=== PATIENT | female | born 1990 | race Caucasian/White ===

== ENCOUNTER 2025-04-15 23:49 | Emergency (ER) | payer BC, SELFPAY ==
--- NOTE | ~2025-04-15 | XR_ITS ---
EXAMINATION: XR knee RT 3V, XR knee LT 3V DATE: 04/16/2025 00:55 INDICATION: Bilateral knee pain post fall TECHNIQUE: 1. Anteroposterior, oblique and crosstable lateral views of the right knee were obtained. 2. Anteroposterior, oblique and crosstable lateral views of the left knee were obtained. COMPARISON: None. FINDINGS: Right knee: Alignment is normal. No fracture. Joint spaces are normal and nonweightbearing imaging. No joint effusion/layering lipohemarthrosis. Soft tissues are unremarkable. Left knee: Alignment is normal. No fracture. Joint spaces are normal on nonweightbearing imaging. No joint effusion/layering lipohemarthrosis. Soft tissues are unremarkable. IMPRESSION: 1. Normal bilateral knee radiographs. Reviewed, dictated and finalized at location A. IMPRESSION: 1. Normal bilateral knee radiographs.
--- NOTE | ~2025-04-15 | CT_ITS ---
EXAMINATION: CT brain wo con DATE: 04/16/2025 00:51 INDICATION: Head injury. TECHNIQUE: Computed tomography (CT) of the head was performed without intravenous contrast. Sagittal and coronal reconstructions were performed. The mA was adjusted according to patient size. Iterative reconstruction technique was employed. The dose-length product was 1135.00 mGy-cm. COMPARISON: None FINDINGS: No fracture. No acute intracranial hemorrhage, acute infarction or abnormal extra axial fluid collection. Small old lacunar infarct in the white matter of the right frontal lobe centrum semiovale. Ventricles are normal and symmetric. No mass/mass effect. The orbits, paranasal sinuses and mastoid air cells are normal. IMPRESSION: 1. No fracture or acute intracranial process. 2. Small old lacunar infarct in the right frontal lobe centrum semiovale. Reviewed, dictated and finalized at location A.
--- NOTE | ~2025-04-15 | CT_ITS ---
EXAMINATION: CT cervical spine wo con DATE: 04/16/2025 00:51 INDICATION: Fall with head injury TECHNIQUE: Computed tomography (CT) of the cervical spine was performed without intravenous contrast. Automated exposure control and iterative reconstruction technique were employed. The dose-length product was 833.09 mGy-cm. COMPARISON: None FINDINGS: There is reversal of the normal cervical lordosis which could be positional or due to muscle spasm. Vertebral body heights are normal. No fracture. Mild disc height loss at C4-C5 and C5-C6. Mild disc bulge at C5-6 contributing to mild central canal stenosis at this level. Multilevel minimal to mild cervical facet and uncovertebral osteoarthritis. No neural foraminal stenosis. Cervical soft tissues are unremarkable. Mild respiratory motion and atelectasis in the visualized upper lungs. IMPRESSION: 1. Mild reversal of the normal cervical lordosis which could be positional or due to muscle spasm. No acute osseous abnormality. 2. Minimal to mild cervical spondylosis. Reviewed, dictated and finalized at location A. IMPRESSION: 1. Mild reversal of the normal cervical lordosis which could be positional or d ue to muscle spasm. No acute osseous abnormality. 2. Minimal to mild cervical spondylosis.
--- OUTSIDE RECORDS SUMMARY | 2025-04-15 23:51 | XMS_ITS | Clinical Summary ---
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
[2025-04-15 23:54] VITALS: BP 137/93; PULSE 121; RESP 21; TEMP 36.4; O2SAT 98
--- NOTE | 2025-04-15 23:55 | ECG_ITS ---
Test Date: 2025-04-15 23:55:02 Measurements Intervals Brice Rate: 127 P: 185 ME: 208 QRS: 68 QRSD: 94 T: 0 QT: 325 QTc: 474 Interpretive Statements SINUS TACHYCARDIA NONSPECIFIC ST & T-WAVE ABNORMALITY ABNORMAL RHYTHM ECG No previous ECG available for comparison Electronically Signed On 04-16-2025 11:43:07 CDT by Aldo Kirk M.D.
--- NOTE | 2025-04-16 01:09 | PC.NURSE ---
pt took c collar off.
--- OUTSIDE RECORDS SUMMARY | 2025-04-16 01:14 | XMS_ITS | Clinical Summary ---
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 Gender Identity Not on file Sexual Orientation Not on file Plan of Treatment Health Maintenance Due Date Last Done Comments Hepatitis C Virus (HCV) Screening 1992 TdaP Immunization 1992 Hepatitis B Immunization (1 of 3 - 19+ 3-dose series) 2011 Pap Smear 2013 Human Papillomavirus (HPV) Immunization (1 - 3-dose SCDM series) 2019 Cervical Cancer Screening (CCS) 2022 HPV/Cotest 2022 SARS-COV-2 Immunization ( season) 2024 Influenza Immunization (#1) 2025 Respiratory Syncytial Virus (RSV) Immunization (Adult) (1 - 1-dose 75+ series) 2067 Meningococcal Immunization (ACWY) Aged Out No longer eligible based on patient's age to complete this topic Pneumococcal Immunization Combined Aged Out No longer eligible based on patient's age to complete this topic Rotavirus Immunization Aged Out No lo nger eligible based on patient's age to complete this topic Insurance [employer] on file
--- OUTSIDE RECORDS SUMMARY | 2025-04-16 01:14 | XMS_ITS | Clinical Summary ---
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
--- OUTSIDE RECORDS SUMMARY | 2025-04-16 01:14 | XMS_ITS | Clinical Summary ---
Author Organization [facility] Address [address] [place] [address] Care Team Providers Care Financial Services Consultant Name Role Phone Unavailable Primary Care Provider Unavailabl e Source Comments [facility],non-owned Affiliates and Associated Physician Practices is amultiple site organization consisting of ambulatory clinics and hospital sitesin [place], [place], [place] and [place]. This disclosure is being madepursuant to the Care Everywhere program and may not contain all information available regarding this patient. Last updated 18.[facility] Allergies No known active allergies Medications * Be aware that medications may not be up to date on this document. Alwaysverify current medications with the patient. No known medications Active Problems No known active problems Family History Medical History Relation Name Comments Cancer - Colon Father CAD (Coronary Artery Disease) Mother Relation Name Status Comments Father Mother Social History Tobacco Use Types Packs/Day Years Used Date Smoking Tobacco: Never Smokeless Tobacco: Never Tobacco Cessation:Counseling Given: Yes Comments Unknown Sex and Gender Information Value Date Recorded Sex Assigned at Not on file Legal Sex Female 11:23 AM CDT Gender Identity Not on file Sexual Orientation Not on file Last Filed Vital Signs Vital Sign Reading Time Taken Comments Blood Pressure 120/82 09/29/2019 9:59 AM LINTER TENDER Pulse 85 09/29/2019 9:59 AM LINTER TENDER Temperature 37.1 C (98.7 F) 09/29/2019 9:59 AM LINTER TENDER Respiratory Rate 16 09/29/2019 9:59 AM LINTER TENDER Oxygen Saturation 98% 09/29/2019 9:59 AM LINTER TENDER Inhaled Oxygen Concentration - - Weight 90.3 kg (199 lb) 09/29/2019 9:59 AM LINTER TENDER Height 156.2 cm (5' 1.5) 09/29/2019 9:59 AM LINTER TENDER Body Mass Index 36.99 09/29/2019 9:59 AM LINTER TENDER Plan of Treatment Health Maintenance Due Date Last Done Comments HIV SCREENING 2007 HEPATITIS C SCREENING 04/19/2010 DTAP/TDAP/TD VACCINES (1 - Tdap) 2011 HEPATITIS B VACCINE (1 of 3 - 19+ 3-dose series) 2011 HPV VACCINE (1 - 3-dose SCDM series) 2019 COVID-19 VACCINE (1 - 2023-2 5 season) 2024 DEPRESSION SCREENING 08/16/2024 INFLUENZA VACCINE (#1) 2025 ZOSTER VACCINE (1 of 2) 2042 HIB VACCINE Aged Out No longer eligi ble based on patient's age to complete this topic MENINGOCOCCAL (Group B) VACC INE SHARED DECISION-MAKING Aged Out No longer eligibl e based on patient's age to complete this topic MENINGOCOCCAL GROUPS A/C/Y/W VACCINE Aged Out No longer eligible b ased on patient's age to complete this topic PNEUMOCOCCAL VACCINE Aged Out No long er eligible based on patient's age to complete this topic Insurance [facility] Address: [facility] [id number] [place] [id number]
--- OUTSIDE RECORDS SUMMARY | 2025-04-16 01:14 | XMS_ITS | Clinical Summary ---
Author Organization [facility] Address [address] [place] [address] Care Team Providers Care Piano Tuner Name Role Phone Komal Castano MD Primary Care Provider [phone] Allergies No known active allergies Medications collagen, hydrolysate, bovine, (collagen, hydr, bovine,, bulk,) 100 % powder Active Lactobac no.41/Bifidobact no.7 (PROBIOTIC-10 ORAL) Take by mouth Active Active Problems Problem Noted Date Diagnosed Date BMI 32.0-32.9,adult 06/12/2021 Encounter for initial prescription of contracept simone pills 04/09/2021 Assessment & Plan (04/09/2021 8:49 AM CDT): Patient uses seatbelt. Patient was advised to continue to watch her diet and exercise on regular basis. Will obtain blood work. Will arrange for Pap smear. Will make a referral for colonoscopy because of family history of colon cancer. Skin lesion 04/09/2021 Assessment & Plan (04/09/2021 8:50 AM CDT): Will make a referral to see a plastic surgeon for excision of the skin lesion on the right arm Immunizations Immunization Administration Dates Next Due Tdap 02/13/2015 Surgical History Surgery Date Site/Laterality Comments SKIN LESION EXCISION 08/05/2021 Right Excision skin lesion right forearm Family History Medical History Relation Name Comments Hypertension Father Hypertension Mother Colon cancer Paternal Grandmother Relation Name Status Comments Father Alive Mother Alive Paternal Grandfather Paternal Grandmother Social History Tobacco Use Types Packs/Day Years Used Date Smoking Tobacco: Never Smokeless Tobacco: Never AUDIT-C Answer Date Recorded Q1: How often do you have a drink containing alc ohol? 2-3 times a week 06/12/2021 Q2: How many drinks containi ng alcohol do you have on a typical day when you are drinking? 1 or 2 06/12/2021 Q3: How often do you have si x or more drinks on one occasion? Never 06/12/2021 PHQ-2 Answer Date Recorded PHQ-2 Total Score (If total score is 3 or more points, staff should administer the PHQ-9) 0 06/12/2021 Personal Safety Answer Date Recorded Getting School Help Needed Not on file 10/16 Comments Unknown Sex and Gender Information Value Date Recorded Sex Assigned at Not on file Legal Sex Female 1:38 PM CDT Gender Identity Female 06/16/2021 2:14 PM CDT Sexual Orientation Straight 06/16/2021 2: 14 PM CDT Obstetrics History Last Filed Vital Signs Vital Sign Reading Time Taken Comments Blood Pressure 126/82 06/12/2021 8:40 AM CDT Pulse 88 06/12/2021 8:40 AM CDT Temperature 36.1 C (96.9 F) 07/16/2021 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 Respiratory Rate 16 06/12/2021 8:40 AM CDT Oxygen Saturation 97% 06/12/2021 8:40 AM CDT Inhaled Oxygen Concentration - - Weight 79.8 kg (176 lb) 06/12/2021 8:40 AM CDT Height 156 cm (5' 1.42) 06/12/2021 8:40 AM CDT Body Mass Index 32.8 06/12/2021 8:40 AM CDT Plan of Treatment Not on file Insurance [facility] CHOICE [employer]US [facility] H[facility]/PPO Address: [place] [address] [facility] Address: [place] [address] [facility] [place]: [place] [address] Care Teams Piano Tuner Relationship Specialty Start Date End Date Komal Castano MD [facility] [address] [address] PCP - General Internal Medicine 03/07/21
--- OUTSIDE RECORDS SUMMARY | 2025-04-16 01:14 | XMS_ITS | Clinical Summary ---
Author Organization [facility] Address [address] [place] [address] Care Team Providers Care Carpenter Ship Name Role Phone Kelvin Davis MD Primary Care Provider [phone] Allergies No known active allergies Medications doxycycline hyclate 100 MG capsule Take 1 capsule (100 mg total) by mouth 2 (two) times daily. 20 capsule 05/19/2021 Active Social History Tobacco Use Types Packs/Day Years Used Date Smoking Tobacco: Never Smokeless Tobacco: Never Alcohol Use Standard Drinks/Week Comments Yes 0 (1 standard drink = 0.6 oz pur e alcohol) social drinker Comments No Sex and Gender Information Value Date Recorded Sex Assigned at Not on file Legal Sex Female 5:18 PM CDT Gender Identity Not on file Sexual Orientation Not on file Last Filed Vital Signs Vital Sign Reading Time Taken Comments Blood Pressure 142/90 05/19/2021 8:44 PM CDT Pulse 82 05/19/2021 8:44 PM CDT Temperature 36.2 C (97.2 F) 05/19/2021 6:13 PM CDT Respiratory Rate 16 05/19/2021 8:44 PM CDT Oxygen Saturation 100% 05/19/2021 8:44 PM CDT Inhaled Oxygen Concentration - - Weight 79.5 kg (175 lb 4.3 oz) 05/19/2021 6:13 P M CDT Height 154.9 cm (5' 1) 05/19/2021 6:13 PM CDT Body Mass Index 33.12 05/19/2021 6:13 PM CDT Plan of Treatment Health Maintenance Due Date Last Done Comments Cervical Cancer Screening Pap Smear (Age 30 to 64) Every 3 Years 1992 Annual Physical 1995 HPV Vaccines (3 - 3-dose series) 03/04/2009 12/10/2008, 11/05/2008, 03/12/2008 Hepatitis C 2010 Cervical Cancer Screening Pap with HPV Testing (Age 30 to 64) Every 5 Years 2022 Cervical Cancer Screening with HPV 2022 COVID-19 Vaccine (2023- season) 2024 DTaP, Tdap and Td Vaccines (8 - Td or Tdap) 02/13/2025 02/13/2015, 02/19/2006, 06/24/2000, Additional history exists Hepatitis B Vaccines Completed 1992, 1992, 1992 Meningococcal B Vaccine Aged Out No l onger eligible based on patient's age to complete this topic Meningococcal Vaccine Aged Out No adura kane eligible based on patient's age to complete this topic Pneumococcal Vaccine: Pediatrics (0 to 5 Years) and At-Risk Patients (6 to 49 Years) Aged Out No longer eligible based on patient's age to complete this topic RSV Immunizations Under 20 Months Aged Out No longer eligible based on patient's age to complete this topic [place] [address] Care Teams Carpenter Ship Relationship Specialty Start Date End Date Kelvin Davis MD [address] [address] PCP - General FAMILY PRACTICE 11/21/17
--- NOTE | 2025-04-16 01:32 | ED_ITS ---
HPI - General Adult General Chief complaint: Fall <Gilbert Bhardwaj MD - Last Filed: 04/16/25 02:19> Stated complaint: fall <Gilbert Bhardwaj MD - Last Filed: 04/16/25 02:19> Time Seen by Provider: 04/15/25 23:56 <Gilbert Bhardwaj MD - Last Filed: 04/16/25 02:19> History of Present Illness HPI narrative: Patient 34-year-old female who presents emergency department with chief complaint of head injury. Patient reports that she has been drinking all day and reports that she somehow or another injury to her head the patient is unsure she had positive loss of consciousness and does not know exactly what happened patient reports no laceration or forehead unsure of her last tetanus status <Gilbert Bhardwaj MD - Last Filed: 04/16/25 02:19> Related Data Allergies/adverse reactions: Allergies Allergy/AdvReac Type Severity Reaction Status Date / Time No Known Allergies Allergy Unverified 02/08/15 07:32 <Gilbert Bhardwaj MD - Last Filed: 04/16/25 02:19> Review of Systems Review of Systems: A 10 system review of systems was completed on the patient and is negative except for what is stated in the HPI. Nursing and ancillary documentation was reviewed. <Gilbert Bhardwaj MD - Last Filed: 04/16/25 02:19> Exam Narrative: GENERAL: Well-appearing, well-nourished, and in no acute distress. HEAD: Normocephalic, 3.5 cm laceration to forehead. EYES: PERRLA and EOMI. ENT: Nares clear, no rhinorrhea or epistaxis. Mucous membranes moist. NECK: Supple. CHEST: Clear to auscultation. No respiratory distress. HEART: Regular rate and rhythm. No murmur heard. Normal peripheral pulses. ABDOMEN: Soft, nontender, nondistended, normal active bowel sounds. EXTREMITIES: Normal range of motion. No edema. SKIN: Warm, dry, no rash. NEURO: No focal deficits. Alert and oriented x3. PSYCH: Normal mood and affect. <Gilbert Bhardwaj MD - Last Filed: 04/16/25 02:19> Course Vital Signs Vital signs: Vital Signs Temperature 97.6 F 04/15/25 23:54 Pulse Rate 121 H 04/15/25 23:54 Respiratory Rate 21 H 04/15/25 23:54 Blood Pressure 137/93 H 04/15/25 23:54 Pulse Oximetry 98 04/15/25 23:54 Oxygen Delivery Room Air 04/15/25 23:54 Temperature 97.6 F 04/15/25 23:54 Pulse Rate 101 H 04/16/25 01:56 Respiratory Rate 16 04/16/25 01:56 Blood Pressure 134/86 04/16/25 01:56 Pulse Oximetry 99 04/16/25 01:56 Oxygen Delivery Room Air 04/15/25 23:54 <Gilbert Bhardwaj MD - Last Filed: 04/16/25 02:19> Vital Signs Temperature 97.6 F 04/15/25 23:54 Pulse Rate 121 H 04/15/25 23:54 Respiratory Rate 21 H 04/15/25 23:54 Blood Pressure 137/93 H 04/15/25 23:54 Pulse Oximetry 98 04/15/25 23:54 Oxygen Delivery Room Air 04/15/25 23:54 Temperature 97.6 F 04/15/25 23:54 Pulse Rate 101 H 04/16/25 01:56 Respiratory Rate 16 04/16/25 01:56 Blood Pressure 134/86 04/16/25 01:56 Pulse Oximetry 99 04/16/25 01:56 Oxygen Delivery Room Air 04/15/25 23:54 <Shazia Sánchez PA-C - Last Filed: 04/16/25 02:18> Procedures Laceration Laceration 1: Date: 04/16/25 <SHARDA Perez Last Filed: 04/16/25 02:18> Time: 01:20 <SHARDA Perez Last Filed: 04/16/25 02:18> Site: scalp <SHARDA Perez Last Filed: 04/16/25 02:18> Side (If applicable): right <SHARDA Perez Last Filed: 04/16/25 02:18> Size (cm): 3.5 <SHARDA Perez Last Filed: 04/16/25 02:18> Description: linear <SHARDA Perez Last Filed: 04/16/25 02:18> Depth: simple, single layer <SHARDA Perez Last Filed: 04/16/25 02:18> Local Anesthetic: lidocaine 1% <SHARDA Perez Last Filed: 04/16/25 02:18> Amount of anesthesia used (mL): 6 <SHARDA Perez Last Filed: 04/16/25 02:18> Pre-repair: wound explored and irrigated <SHARDA Perez Last Filed: 04/16/25 02:18> ====== Skin Level ======: Skin layer closed with: nylon <SHARDA Perez Last Filed: 04/16/25 02:18> Size (cm): 5-0 <SHARDA Perez Last Filed: 04/16/25 02:18> Number of sutures: 6 <SHARDA Preez Last Filed: 04/16/25 02:18> Technique: simple, interrupted <SHARDA Perez Last Filed: 04/16/25 02:18> ====== Subcutaneous Layer ======: ====== Muscle Layer ======: ====== Tendon Layer ======: Medical Decision Making Vital Signs Vital Signs: Vital Signs Temperature 97.6 F 04/15/25 23:54 Pulse Rate 121 H 04/15/25 23:54 Respiratory Rate 21 H 04/15/25 23:54 Blood Pressure 137/93 H 04/15/25 23:54 Pulse Oximetry 98 04/15/25 23:54 Oxygen Delivery Room Air 04/15/25 23:54 Temperature 97.6 F 04/15/25 23:54 Pulse Rate 101 H 04/16/25 01:56 Respiratory Rate 16 04/16/25 01:56 Blood Pressure 134/86 04/16/25 01:56 Pulse Oximetry 99 04/16/25 01:56 Oxygen Delivery Room Air 04/15/25 23:54 <Gilbert Bhardwaj MD - Last Filed: 04/16/25 02:19> Vital Signs Temperature 97.6 F 04/15/25 23:54 Pulse Rate 121 H 04/15/25 23:54 Respiratory Rate 21 H 04/15/25 23:54 Blood Pressure 137/93 H 04/15/25 23:54 Pulse Oximetry 98 04/15/25 23:54 Oxygen Delivery Room Air 04/15/25 23:54 Temperature 97.6 F 04/15/25 23:54 Pulse Rate 101 H 04/16/25 01:56 Respiratory Rate 16 04/16/25 01:56 Blood Pressure 134/86 04/16/25 01:56 Pulse Oximetry 99 04/16/25 01:56 Oxygen Delivery Room Air 04/15/25 23:54 <Shazia Sánchez PA-C - Last Filed: 04/16/25 02:18> Discharge Plan Discharge Clinical Impression: Facial laceration, Head injury <Gilbert Bhardwaj MD - Last Filed: 04/16/25 02:19> Patient Disposition: Home <Gilbert Bhardwaj MD - Last Filed: 04/16/25 02:19> Condition: Stable <Gilbert Bhardwaj MD - Last Filed: 04/16/25 02:19> Instructions: Antibiotic Form, Laceration (ED), Head Injury (ED) <Gilbert Bhardwaj MD - Last Filed: 04/16/25 02:19> Additional Instructions: Please follow-up with 5-7 days for suture removal please watch for signs of infection <Gilbert Bhardwaj MD - Last Filed: 04/16/25 02:19> Patient Language: Lithuanian <Gilbert Bhardwaj MD - Last Filed: 04/16/25 02:19> Follow-up/Referrals: Omaira,Komal Hinds MD [Primary Care Provider, Unknown] <Gilbert Bhardwaj MD - Last Filed: 04/16/25 02:19>
[2025-04-16] MEDS: SODIUM CHLORIDE 0.9% IV 1,000 ML 999 ML IV CONT (01:44)
[2025-04-16 01:56] VITALS: BP 134/86; PULSE 101; RESP 16; O2SAT 99
[2025-04-16 02:50] VITALS: BP 129/81; PULSE 102; RESP 22; O2SAT 96
[2025-04-16] MEDS: TETANUS,DIPHTHERIA,AC PERTUSSIS ADULT (0.5 ML) BOOSTRIX IM (02:55)
[2025-04-16 03:15] VITALS: BP 129/81; PULSE 102; RESP 22; O2SAT 96
== END 2025-04-16 03:17 | disposition home or self-care (01) ==
PROVIDERS: Emergency Provider Emergency Medicine; PCP Internal Medicine
DX: S01.81XA Laceration without foreign body of other part of head, initial encounter (principal); X58.XXXA Exposure to other specified factors, initial encounter; R00.0 Tachycardia, unspecified; R94.31 Abnormal electrocardiogram [ECG] [EKG]
CPT/HCPCS: 12001; 70450; 72125; 73562; 90471; 90715; 93005; 99284; J2003; J7030; L0140